=== PATIENT | female | born 1955 | race Caucasian/White ===

== ENCOUNTER 2021-03-12 14:18 | Inpatient (IN) ==
[2021-03-12 14:43] LABS: Basophils # 0.1 K/mcL (0.0-0.2); Basophils % 0.6 %; Eosinophils # 0.1 K/mcL (0.0-0.6); Eosinophils % 0.7 %; Hematocrit 30.7 % (35.3-44.9); Hemoglobin 10.3 g/dL (11.5-15.4); Immature Granulocytes % 0.8 % (0-4); Lymphocytes # 1.1 K/mcL (0.6-4.6); Mean Corpuscular HGB Conc 33.6 g/dL (31.6-35.5); Mean Corpuscular Hemoglobin 31.2 pg (28.0-33.3); Mean Platelet Volume 10.5 fL (9.4-12.4); Monocytes # 1.7 K/mcL (0.0-1.3); Monocytes % 9.2 %; Neutrophils # 15.3 K/mcL (1.6-8.9); Platelet Count 200 K/mcL (140-400); Red Cell Distribution Width 12.6 % (11.5-14.5); Segmented Neutrophils % 82.7 %; White Blood Count 18.4 K/mcL (4.3-11.1)
[2021-03-12 15:06] LABS: Potassium 4.6 mEq/L (3.5-5.1)
[2021-03-12 15:07] LABS: Albumin 3.7 g/dL (3.5-5.7); Albumin/Globulin Ratio 1.2 (1.1-2.2); Bilirubin,Direct 0.2 mg/dL (0.0-0.2); Bilirubin,Indirect 0.4 mg/dL (0.0-1.0); Bilirubin,Total 0.6 mg/dL (0.3-1.0); Calcium 9.5 mg/dL (8.6-10.3); Globulin 3.2 g/dL (2.4-3.5); Total Protein 6.9 g/dL (6.4-8.9); Troponin I 1.62 ng/mL (< 0.04)
[2021-03-12] MEDS: 0.9 % Sodium Chloride 1,000 ML IVC SCH (15:07)
[2021-03-12 15:15] LABS: INR 1.1; Prothrombin Time 13.2 Seconds (9.4-12.1)
[2021-03-12 15:17] LABS: Activated Partial Thrombo Time 29.5 Seconds (26.0-36.0)
[2021-03-12 15:20] LABS: Thyroid Stimulating Hormone 5.568 mcIU/mL (0.340-5.600)
[2021-03-12 15:22] LABS: Bilirubin,Urine Negative (Negative); Blood,Urine Small (Negative); Clarity,Urine Clear (Clear); Color,Urine Light-Yellow (Yellow); Glucose,Urine (UA) Normal (Normal); Ketones,Urine Negative (Negative); Leukocyte Esterase,Urine Trace (Negative); Nitrite,Urine Negative (Negative); PH,Urine 5.5 pH Units (5.0-8.0); Protein,Urine Negative (Neg-Trace); RBC,Urine 0-3 per hpf (0-3); Specific Gravity,Urine 1.007 (1.010-1.025); Squamous Epithelial Cell,Urine Few per hpf (None-Few); Urobilinogen,Urine Normal (Normal); WBC,Urine 0-3 per hpf (0-3)
[2021-03-12 15:29] LABS: Amphetamine Screen,Urine Negative ng/mL (Cutoff=1000); Barbiturate Screen,Urine Negative ng/mL (Cutoff=200); Benzodiazepines Screen,Urine Negative ng/mL (Cutoff=200); Cannabinoid Screen,Urine Negative ng/mL (Cutoff = 50); Cocaine Screen,Urine Negative ng/mL (Cutoff= 300); Opiate Screen,Urine Positive ng/mL (Cutoff=300); Phencyclidine Screen,Urine Negative ng/mL (Cutoff=25)
[2021-03-12] MEDS ORDERED: *HR* OxyCODONE/APAP 7.5/325 TABLET PO STA (16:41)
[2021-03-12 18:44] LABS: Troponin I 1.45 ng/mL (< 0.04)
[2021-03-12] MEDS ORDERED: *HR* LORazepam 2 MG/ML VIAL IVP ONE (20:23)
[2021-03-12] MEDS ORDERED: Naloxone 0.4 MG/ML INJ IVP PRN (21:50)
[2021-03-12] MEDS ORDERED: Ondansetron 4 MG/2 ML VIAL IVP PRN (21:50)
[2021-03-12] MEDS ORDERED: Acetaminophen 325 MG TABLET PO PRN (21:50)
[2021-03-12] MEDS: cefTRIAXone 1,000 MG in Water for inj. (sterile) 10 ML IVP SCH (22:15)
[2021-03-12 22:21] LABS: Magnesium 2.3 mg/dL (1.6-2.6); Phosphorous 5.4 mg/dL (2.7-4.5)
[2021-03-12 22:39] LABS: Chol/HDL Ratio 3.2 (0-4.9)
[2021-03-12] MEDS ORDERED: 0.9 % Sodium Chloride 1,000 ML IVC ONE (23:00)
[2021-03-12] MEDS ORDERED: 0.9 % Sodium Chloride 1,000 ML IVC SCH (23:15)
[2021-03-12 23:24] LABS: Estimated Average Glucose 120 mg/dl; Hemoglobin A1C 5.8 %
[2021-03-13] MEDS: 0.9 % Sodium Chloride 1,000 ML IVC SCH ×6 (00:24→23:22)
[2021-03-13 00:47] LABS: Basophils # 0.1 K/mcL (0.0-0.2); Basophils % 0.7 %; Eosinophils # 0.3 K/mcL (0.0-0.6); Eosinophils % 1.7 %; Hemoglobin 9.3 g/dL (11.5-15.4); Immature Granulocytes % 0.7 % (0-4); Lymphocytes % 6.8 %; Mean Corpuscular HGB Conc 33.2 g/dL (31.6-35.5); Mean Corpuscular Hemoglobin 31.3 pg (28.0-33.3); Mean Corpuscular Volume 94.3 fL (83.0-100.0); Mean Platelet Volume 10.4 fL (9.4-12.4); Monocytes # 1.8 K/mcL (0.0-1.3); Monocytes % 12.1 %; Neutrophils # 11.7 K/mcL (1.6-8.9); Platelet Count 164 K/mcL (140-400); Red Blood Count 2.97 M/mcL (3.82-4.97); Red Cell Distribution Width 12.8 % (11.5-14.5)
[2021-03-13 00:55] LABS: INR 1.2; Prothrombin Time 13.6 Seconds (9.4-12.1)
[2021-03-13] MEDS ORDERED: 0.9 % Sodium Chloride 1,000 ML IVC SCH (01:00)
[2021-03-13 01:06] LABS: Calcium 8.7 mg/dL (8.6-10.3); Potassium 4.7 mEq/L (3.5-5.1)
[2021-03-13] MEDS: cefTRIAXone 1,000 MG in Water for inj. (sterile) 10 ML IVP SCH (07:22)
[2021-03-13] MEDS: Aspirin 81 MG TAB.CHEW PO SCH (10:02)
[2021-03-13] MEDS ORDERED: Perflutren Lipid Microsphere 1.3 ML in 0.9 % Sodium Chloride 8.7 ML IVP PRN (10:18)
[2021-03-13] MEDS ORDERED: *HR* FentaNYL (PF) 100 MCG/2 ML VIAL IVP ONE (14:17)
[2021-03-13] MEDS ORDERED: *HR* Midazolam HCl 2 MG/2 ML VIAL IVP ONE (14:17)
[2021-03-13] MEDS ORDERED: 0.9 % Sodium Chloride 500 ML ONE ×2 (14:48→14:54)
[2021-03-13] MEDS ORDERED: Ampicillin/Sulbactam 1,500 MG in 0.9 % Sodium Chloride Mini Bag 100 ML IVPB ONE (14:58)
[2021-03-13] MEDS ORDERED: Isovue-300 50ML VIAL IVP ONE (15:28)
[2021-03-13] MEDS ORDERED: Morphine Sulfate 2 MG/ML SYRINGE IVP PRN (15:39)
[2021-03-13] MEDS ORDERED: polyethylene glycoL 3350 17 GM POWD.PACK PO PRN (16:08)
[2021-03-13] MEDS: *HR* OxyCODONE Immed Rel 5 MG TABLET PO PRN (18:26)
[2021-03-13] MEDS: *HR* HYDROcodone/Acet 5/325 mg TABLET PO PRN (20:57)
[2021-03-14] MEDS: *HR* LORazepam 0.5 MG TABLET PO PRN ×2 (00:54→18:26)
[2021-03-14] MEDS: cefTRIAXone 1,000 MG in Water for inj. (sterile) 10 ML IVP SCH (08:54)
[2021-03-14] MEDS: 0.9 % Sodium Chloride 1,000 ML IVC SCH ×2 (08:54→17:26)
[2021-03-14] MEDS: Aspirin 81 MG TAB.CHEW PO SCH (08:54)
[2021-03-14] MEDS: *HR* OxyCODONE Immed Rel 5 MG TABLET PO PRN ×2 (09:09→15:10)
[2021-03-14 10:23] LABS: Basophils # 0.1 K/mcL (0.0-0.2); Basophils % 0.9 %; Eosinophils # 0.2 K/mcL (0.0-0.6); Eosinophils % 2.1 %; Hematocrit 25.5 % (35.3-44.9); Hemoglobin 8.4 g/dL (11.5-15.4); Immature Granulocytes % 0.6 % (0-4); Lymphocytes # 0.7 K/mcL (0.6-4.6); Lymphocytes % 6.4 %; Mean Corpuscular HGB Conc 32.9 g/dL (31.6-35.5); Mean Corpuscular Volume 94.1 fL (83.0-100.0); Mean Platelet Volume 10.5 fL (9.4-12.4); Monocytes # 1.4 K/mcL (0.0-1.3); Monocytes % 12.7 %; Neutrophils # 8.7 K/mcL (1.6-8.9); Platelet Count 160 K/mcL (140-400); Red Blood Count 2.71 M/mcL (3.82-4.97); Red Cell Distribution Width 13.2 % (11.5-14.5); Segmented Neutrophils % 77.3 %; White Blood Count 11.2 K/mcL (4.3-11.1)
[2021-03-14 10:43] LABS: Calcium 8.6 mg/dL (8.6-10.3); Magnesium 1.9 mg/dL (1.6-2.6); Phosphorous 4.3 mg/dL (2.7-4.5)
[2021-03-15] MEDS: 0.9 % Sodium Chloride 1,000 ML IVC SCH ×3 (01:28→17:57)
[2021-03-15] MEDS: *HR* LORazepam 0.5 MG TABLET PO PRN ×2 (01:34→17:58)
[2021-03-15 07:23] LABS: Basophils # 0.1 K/mcL (0.0-0.2); Basophils % 1.1 %; Eosinophils # 0.5 K/mcL (0.0-0.6); Eosinophils % 3.9 %; Hematocrit 27.6 % (35.3-44.9); Hemoglobin 8.9 g/dL (11.5-15.4); Immature Granulocytes % 0.7 % (0-4); Lymphocytes # 1.1 K/mcL (0.6-4.6); Lymphocytes % 9.2 %; Mean Corpuscular HGB Conc 32.2 g/dL (31.6-35.5); Mean Corpuscular Hemoglobin 31.1 pg (28.0-33.3); Mean Corpuscular Volume 96.5 fL (83.0-100.0); Mean Platelet Volume 10.6 fL (9.4-12.4); Monocytes # 1.7 K/mcL (0.0-1.3); Monocytes % 13.8 %; Neutrophils # 8.9 K/mcL (1.6-8.9); Platelet Count 165 K/mcL (140-400); Red Blood Count 2.86 M/mcL (3.82-4.97); Red Cell Distribution Width 13.2 % (11.5-14.5); Segmented Neutrophils % 71.3 %; White Blood Count 12.4 K/mcL (4.3-11.1)
[2021-03-15 07:42] LABS: Calcium 8.5 mg/dL (8.6-10.3); Magnesium 1.7 mg/dL (1.6-2.6); Potassium 3.7 mEq/L (3.5-5.1)
[2021-03-15] MEDS: Aspirin 81 MG TAB.CHEW PO SCH (09:19)
[2021-03-15] MEDS: cefTRIAXone 1,000 MG in Water for inj. (sterile) 10 ML IVP SCH (09:23)
[2021-03-15] MEDS: *HR* OxyCODONE Immed Rel 5 MG TABLET PO PRN ×2 (12:19→21:53)
[2021-03-15] MEDS: *HR* HYDROcodone/Acet 5/325 mg TABLET PO PRN (14:49)
[2021-03-15] MEDS ORDERED: MOM Conc 10 ML UD.LIQ PO ONE (17:16)
[2021-03-16] MEDS: *HR* HYDROcodone/Acet 5/325 mg TABLET PO PRN ×3 (02:23→20:57)
[2021-03-16] MEDS: 0.9 % Sodium Chloride 1,000 ML IVC SCH ×4 (03:31→22:57)
[2021-03-16 05:46] LABS: Basophils # 0.1 K/mcL (0.0-0.2); Basophils % 0.8 %; Eosinophils # 0.4 K/mcL (0.0-0.6); Eosinophils % 3.7 %; Hematocrit 23.6 % (35.3-44.9); Hemoglobin 7.8 g/dL (11.5-15.4); Immature Granulocytes % 0.9 % (0-4); Lymphocytes % 8.5 %; Mean Corpuscular HGB Conc 33.1 g/dL (31.6-35.5); Mean Corpuscular Hemoglobin 31.5 pg (28.0-33.3); Mean Corpuscular Volume 95.2 fL (83.0-100.0); Mean Platelet Volume 10.4 fL (9.4-12.4); Monocytes # 1.6 K/mcL (0.0-1.3); Monocytes % 13.7 %; Neutrophils # 8.3 K/mcL (1.6-8.9); Platelet Count 139 K/mcL (140-400); Red Blood Count 2.48 M/mcL (3.82-4.97); Red Cell Distribution Width 13.2 % (11.5-14.5); Segmented Neutrophils % 72.4 %; White Blood Count 11.4 K/mcL (4.3-11.1)
[2021-03-16 06:09] LABS: Calcium 7.8 mg/dL (8.6-10.3); Magnesium 1.4 mg/dL (1.6-2.6); Phosphorous 3.3 mg/dL (2.7-4.5); Potassium 3.1 mEq/L (3.5-5.1)
[2021-03-16] MEDS: Aspirin 81 MG TAB.CHEW PO SCH (07:24)
[2021-03-16] MEDS: cefTRIAXone 1,000 MG in Water for inj. (sterile) 10 ML IVP SCH (07:24)
[2021-03-16] MEDS: *HR* LORazepam 0.5 MG TABLET PO PRN ×2 (07:24→19:05)
[2021-03-16] MEDS: *HR* OxyCODONE Immed Rel 5 MG TABLET PO PRN ×3 (10:48→23:30)
[2021-03-16] MEDS: Metoprolol XL (24 HR) Succ 50 MG TAB.ER.24H PO SCH (14:29)
[2021-03-16] MEDS: amLODIPine 5 MG TABLET PO SCH (14:29)
[2021-03-16] MEDS: Famotidine 20 MG TABLET PO SCH (18:11)
[2021-03-16 23:14] LABS: Alpha 2 Globulin (PEP) 0.82 g/dL (0.48-1.05)
[2021-03-17 01:08] LABS: Basophils # 0.1 K/mcL (0.0-0.2); Basophils % 0.9 %; Eosinophils # 0.4 K/mcL (0.0-0.6); Eosinophils % 2.8 %; Hematocrit 23.8 % (35.3-44.9); Hemoglobin 7.8 g/dL (11.5-15.4); Lymphocytes # 0.7 K/mcL (0.6-4.6); Mean Corpuscular HGB Conc 32.8 g/dL (31.6-35.5); Mean Corpuscular Hemoglobin 30.8 pg (28.0-33.3); Mean Corpuscular Volume 94.1 fL (83.0-100.0); Mean Platelet Volume 10.5 fL (9.4-12.4); Monocytes # 1.5 K/mcL (0.0-1.3); Monocytes % 10.4 %; Neutrophils # 11.4 K/mcL (1.6-8.9); Platelet Count 139 K/mcL (140-400); Red Blood Count 2.53 M/mcL (3.82-4.97); Red Cell Distribution Width 13.3 % (11.5-14.5); Segmented Neutrophils % 79.9 %; White Blood Count 14.3 K/mcL (4.3-11.1)
[2021-03-17 01:28] LABS: Calcium 8.1 mg/dL (8.6-10.3); Magnesium 1.7 mg/dL (1.6-2.6); Potassium 3.7 mEq/L (3.5-5.1)
[2021-03-17] MEDS: *HR* HYDROcodone/Acet 5/325 mg TABLET PO PRN ×2 (04:36→13:56)
[2021-03-17] MEDS: *HR* LORazepam 0.5 MG TABLET PO PRN ×2 (04:36→16:31)
[2021-03-17] MEDS ORDERED: Lidocaine Viscous Oral Soln 15 ML SOLUTION MM PRN (07:50)
[2021-03-17] MEDS ORDERED: 0.9 % Sodium Chloride 500 ML IVC ONE (07:50)
[2021-03-17] MEDS: *HR* FentaNYL (PF) 100 MCG/2 ML VIAL IVP PRN ×3 (08:15→08:25)
[2021-03-17] MEDS: *HR* Midazolam HCl 5 MG/5 ML VIAL IVP PRN ×3 (08:15→08:25)
[2021-03-17 08:21] LABS: IFE Reflexed NOT DONE
[2021-03-17] MEDS: cefTRIAXone 1,000 MG in Water for inj. (sterile) 10 ML IVP SCH (09:41)
[2021-03-17] MEDS: amLODIPine 5 MG TABLET PO SCH (09:42)
[2021-03-17] MEDS: *HR* OxyCODONE Immed Rel 5 MG TABLET PO PRN (09:42)
[2021-03-17] MEDS: Metoprolol XL (24 HR) Succ 50 MG TAB.ER.24H PO SCH (09:43)
[2021-03-17] MEDS: Aspirin 81 MG TAB.CHEW PO SCH (09:43)
[2021-03-17] MEDS ORDERED: Morphine Sulfate 2 MG/ML SYRINGE IVP ONE (09:58)
[2021-03-17] MEDS: Famotidine 20 MG TABLET PO SCH ×2 (10:08→13:30)
[2021-03-17] MEDS ORDERED: Isovue-300 50ML VIAL IVP ONE (11:15)
[2021-03-17] MEDS: 0.9 % Sodium Chloride 1,000 ML IVC SCH ×2 (13:36→15:55)
[2021-03-17 17:01] LABS: Adenovirus Not Detected (Not Detect); Bordetella Pertussis Not Detected (Not Detect); Chlamydophila pneumoniae Not Detected (Not Detect); Coronavirus 229E Not Detected (Not Detect); Coronavirus HKU1 Not Detected (Not Detect); Coronavirus NL63 Not Detected (Not Detect); Coronavirus OC43 Not Detected (Not Detect); Human Metapneumovirus Not Detected (Not Detect); Human Rhinovirus/Enterovirus Not Detected (Not Detect); Influenza A Subtype 2009 H1 Not Detected (Not Detect); Influenza B Not Detected (Not Detect); Mycoplasma pneumoniae Not Detected (Not Detect); Parainfluenza Virus 1 Not Detected (Not Detect); Parainfluenza Virus 2 Not Detected (Not Detect); Parainfluenza Virus 3 Not Detected (Not Detect); Parainfluenza Virus 4 Not Detected (Not Detect); Respiratory Syncytial Virus Not Detected (Not Detect); SARS-CoV-2 Not Detected (Not Detect)
[2021-03-18] MEDS: 0.9 % Sodium Chloride 1,000 ML IVC SCH ×3 (02:55→21:24)
[2021-03-18] MEDS: Famotidine 20 MG TABLET PO SCH (05:40)
[2021-03-18 06:45] LABS: Lymphocytes % 5.5 %; Mean Platelet Volume 11.6 fL (9.4-12.4)
[2021-03-18 06:47] LABS: Basophils # 0.2 K/mcL (0.0-0.2); Basophils % 0.9 %; Eosinophils # 0.8 K/mcL (0.0-0.6); Eosinophils % 4.7 %; Hematocrit 20.4 % (35.3-44.9); Hemoglobin 6.8 g/dL (11.5-15.4); Immature Granulocytes % 0.6 % (0-4); Immature Platelets 6.9 % (1.1-6.1); Lymphocytes # 0.9 K/mcL (0.6-4.6); Mean Corpuscular HGB Conc 33.3 g/dL (31.6-35.5); Mean Corpuscular Hemoglobin 31.8 pg (28.0-33.3); Mean Corpuscular Volume 95.3 fL (83.0-100.0); Monocytes # 1.4 K/mcL (0.0-1.3); Monocytes % 8.3 %; Neutrophils # 13.6 K/mcL (1.6-8.9); Platelet Count 131 K/mcL (140-400); Red Blood Count 2.14 M/mcL (3.82-4.97); Red Cell Distribution Width 13.8 % (11.5-14.5)
[2021-03-18 07:06] LABS: Potassium 3.7 mEq/L (3.5-5.1)
[2021-03-18 07:07] LABS: Magnesium 1.5 mg/dL (1.6-2.6); Phosphorous 4.6 mg/dL (2.7-4.5)
[2021-03-18 07:24] LABS: Anisocytosis 1+ (Not Present); Platelet Estimate Slight Decrease (Normal)
[2021-03-18] MEDS: Aspirin 81 MG TAB.CHEW PO SCH (08:15)
[2021-03-18] MEDS: amLODIPine 5 MG TABLET PO SCH (08:15)
[2021-03-18] MEDS: *HR* LORazepam 0.5 MG TABLET PO PRN ×2 (08:16→17:24)
[2021-03-18] MEDS: *HR* HYDROcodone/Acet 5/325 mg TABLET PO PRN ×3 (08:16→17:24)
[2021-03-18] MEDS: Metoprolol XL (24 HR) Succ 50 MG TAB.ER.24H PO SCH (08:16)
[2021-03-18] MEDS: *HR* OxyCODONE Immed Rel 5 MG TABLET PO PRN (09:59)
[2021-03-18] MEDS ORDERED: 0.9 % Sodium Chloride 250 ML ONE (13:48)
[2021-03-19] MEDS: 0.9 % Sodium Chloride 1,000 ML IVC SCH (03:40)
[2021-03-19] MEDS: Famotidine 20 MG TABLET PO SCH (05:25)
[2021-03-19 06:36] LABS: Basophils # 0.2 K/mcL (0.0-0.2); Basophils % 0.8 %; Eosinophils # 0.9 K/mcL (0.0-0.6); Eosinophils % 4.9 %; Hematocrit 22.8 % (35.3-44.9); Hemoglobin 7.6 g/dL (11.5-15.4); Lymphocytes % 5.4 %; Mean Corpuscular HGB Conc 33.3 g/dL (31.6-35.5); Mean Corpuscular Hemoglobin 29.3 pg (28.0-33.3); Mean Platelet Volume 11.8 fL (9.4-12.4); Monocytes # 1.5 K/mcL (0.0-1.3); Monocytes % 7.7 %; Neutrophils # 15.5 K/mcL (1.6-8.9); Platelet Count 117 K/mcL (140-400); Red Blood Count 2.59 M/mcL (3.82-4.97); Red Cell Distribution Width 21.2 % (11.5-14.5); Segmented Neutrophils % 80.2 %; White Blood Count 19.3 K/mcL (4.3-11.1)
[2021-03-19 06:57] LABS: Magnesium 1.4 mg/dL (1.6-2.6); Phosphorous 4.4 mg/dL (2.7-4.5); Potassium 3.2 mEq/L (3.5-5.1)
[2021-03-19] MEDS ORDERED: Potassium Chloride Elixir 20 MEQ/15 ML UDC PO ONE (07:36)
[2021-03-19] MEDS: Aspirin 81 MG TAB.CHEW PO SCH (08:33)
[2021-03-19] MEDS: amLODIPine 5 MG TABLET PO SCH (08:33)
[2021-03-19] MEDS: Metoprolol XL (24 HR) Succ 50 MG TAB.ER.24H PO SCH (08:34)
[2021-03-19] MEDS ORDERED: *HR* HYDROmorphone (PF) 1 MG/ML SYRINGE IVP PRN (11:20)
[2021-03-19] MEDS: *HR* HYDROcodone/Acet 5/325 mg TABLET PO PRN ×3 (12:23→21:37)
[2021-03-19] MEDS: *HR* LORazepam 0.5 MG TABLET PO PRN (18:09)
[2021-03-20] MEDS: *HR* LORazepam 0.5 MG TABLET PO PRN ×3 (02:29→20:51)
[2021-03-20] MEDS: Famotidine 20 MG TABLET PO SCH (05:51)
[2021-03-20] MEDS: Metoprolol XL (24 HR) Succ 50 MG TAB.ER.24H PO SCH (09:30)
[2021-03-20] MEDS: amLODIPine 5 MG TABLET PO SCH (09:30)
[2021-03-20] MEDS: Aspirin 81 MG TAB.CHEW PO SCH (09:30)
[2021-03-20] MEDS: *HR* OxyCODONE Immed Rel 5 MG TABLET PO PRN ×2 (11:38→17:48)
[2021-03-20] MEDS: *HR* HYDROcodone/Acet 5/325 mg TABLET PO PRN ×2 (15:12→20:50)
[2021-03-21 02:51] LABS: Basophils # 0.1 K/mcL (0.0-0.2); Basophils % 0.9 %; Eosinophils # 0.4 K/mcL (0.0-0.6); Eosinophils % 2.9 %; Hematocrit 22.8 % (35.3-44.9); Hemoglobin 7.1 g/dL (11.5-15.4); Immature Granulocytes % 0.9 % (0-4); Lymphocytes # 1.1 K/mcL (0.6-4.6); Lymphocytes % 7.5 %; Mean Corpuscular HGB Conc 31.1 g/dL (31.6-35.5); Mean Corpuscular Hemoglobin 28.3 pg (28.0-33.3); Mean Corpuscular Volume 90.8 fL (83.0-100.0); Mean Platelet Volume 11.3 fL (9.4-12.4); Monocytes # 1.3 K/mcL (0.0-1.3); Monocytes % 8.3 %; Red Blood Count 2.51 M/mcL (3.82-4.97); Red Cell Distribution Width 19.6 % (11.5-14.5); Segmented Neutrophils % 79.5 %; White Blood Count 15.1 K/mcL (4.3-11.1)
[2021-03-21 02:52] LABS: Platelet Count 96 K/mcL (140-400)
[2021-03-21 03:01] LABS: Potassium 3.2 mEq/L (3.5-5.1)
[2021-03-21] MEDS: Famotidine 20 MG TABLET PO SCH (05:38)
[2021-03-21] MEDS ORDERED: Potassium Chloride Elixir 20 MEQ/15 ML UDC PO ONE (07:43)
[2021-03-21] MEDS: Aspirin 81 MG TAB.CHEW PO SCH (09:01)
[2021-03-21] MEDS: Metoprolol XL (24 HR) Succ 50 MG TAB.ER.24H PO SCH (09:01)
[2021-03-21] MEDS: amLODIPine 5 MG TABLET PO SCH (09:02)
[2021-03-21] MEDS: *HR* HYDROcodone/Acet 5/325 mg TABLET PO PRN ×2 (09:52→17:48)
[2021-03-21] MEDS: *HR* LORazepam 0.5 MG TABLET PO PRN ×2 (11:51→20:43)
[2021-03-21] MEDS ORDERED: Lidocaine Viscous Oral Soln 15 ML SOLUTION MM PRN (16:32)
[2021-03-21 20:14] VITALS: PULSE 106
[2021-03-21] MEDS: *HR* OxyCODONE Immed Rel 5 MG TABLET PO PRN (20:43)
[2021-03-22 00:07] VITALS: BP 139/85; TEMP 98.4; O2SAT 99
== END 2021-03-22 00:50 | disposition short-term general hospital (02) | DRG 871 ==
LOC: 2NENU 14:18 → EMEROOARM 14:18 → SUATTDRO 21:35 → OBSVTOIN 21:35 → 2NENU 22:21
PROVIDERS: ADMIT Student in an Organized Health Care Education/Training Program; ATTEND Internal Medicine